=== PATIENT | male | born 1960 | race Caucasian/White ===

== ENCOUNTER 2017-08-01 17:26 | Inpatient (IN) | payer SELFPAY ==
[~2017-08-01] VITALS: Ht 180.3 cm; Wt 116.2 kg
[~2017-08-01 17:26] MED LIST: ARIP1TAB5 PO; DIVA500 PO
[2017-08-01 17:53] VITALS: BP 171/101; PULSE 77; RESP 16; TEMP 98.4; O2SAT 98
[2017-08-01 18:42] VITALS: BP 116/60; PULSE 68; RESP 18; TEMP 98.2; O2SAT 94
[2017-08-01 19:16] LABS: AUTOMATED NEUTROPHIL # 4.4 TH/MM3 (1.8-7.7); BASOPHIL # 0.1 TH/MM3 (0-0.2); BASOPHIL % 0.6 % (0.0-2.0); EOSINOPHIL # 0.3 TH/MM3 (0-0.4); EOSINOPHIL % 3.6 % (0.0-4.0); HEMATOCRIT 46.8 % (39.0-51.0); HEMOGLOBIN 16.9 GM/DL (13.0-17.0); LYMPH % 34.8 % (9.0-44.0); LYMPHOCYTE # 2.8 TH/MM3 (1.0-4.8); MEAN CELL VOLUME 90.9 FL (80.0-100.0); MEAN CORPUSCULAR HEMOGLOBIN 32.9 PG (27.0-34.0); MONO % 6.3 % (0.0-8.0); MONOCYTE # 0.5 TH/MM3 (0-0.9); NEUT % 54.7 % (16.0-70.0); PLATELET COUNT 285 TH/MM3 (150-450); RED BLOOD COUNT 5.15 MIL/MM3 (4.50-5.90); RED CELL DISTRIBUTION WIDTH 12.5 % (11.6-17.2); WHITE BLOOD COUNT 8.1 TH/MM3 (4.0-11.0)
[2017-08-01 19:18] LABS: MEAN CORPUSCULAR HGB CONC 36.1 % (32.0-36.0)
[2017-08-01 19:19] LABS: ALBUMIN 3.7 GM/DL (3.4-5.0); AST (GOT) 25 U/L (15-37); BICARBONATE 27.1 MEQ/L (21.0-32.0); BLOOD UREA NITROGEN 9 MG/DL (7-18); CHLORIDE 102 MEQ/L (98-107); CREATININE 0.84 MG/DL (0.60-1.30); GLOMERULAR FILTRATION RATE 94 ML/MIN (>89); GLUCOSE,RANDOM 123 MG/DL (74-106); SODIUM (NA) 137 MEQ/L (136-145)
[2017-08-01 19:20] LABS: ALT (GPT) 37 U/L (12-78)
[2017-08-01 19:22] LABS: ALKALINE PHOSPHATASE 71 U/L (45-117); TOTAL BILIRUBIN ADULT 0.3 MG/DL (0.2-1.0); TOTAL PROTEIN 7.9 GM/DL (6.4-8.2)
[2017-08-01 22:05] VITALS: BP 137/72; PULSE 88; RESP 20
[2017-08-01 23:24] LABS: BILIRUBIN, URINE NEG (NEG); BLOOD, URINE NEG (NEG); GLUCOSE,URINE NEG (NEG); KETONE, URINE NEG (NEG); MUCUS URINE FEW /lpf (OCC); NITRITE,URINE NEG (NEG); SQUAMOUS EPITHELIAL CELL URINE 1 /hpf (0-5); URINE COLOR YELLOW (YELLW/STRAW); URINE LEUKOCYTE ESTERASE NEG (NEG)
--- NOTE | 2017-08-02 00:42 | PD ---
HPI Chief Complaint: Psychiatric Symptoms Time Seen by Provider: 21:39 Travel History International Travel<30 days: No Contact w/Intl Traveler<30days: No Traveled to known affect area: No History of Present Illness HPI 57-year-old white male presents emergency department on a voluntary basis for psychological evaluation. He lives at home with his mother. He comes in with his mother for evaluation. Patient has had a history of depression and has been off his Depakote for some time. He has been self-medicating with marijuana. He has had thoughts of self-harm but has no current plan. He would like to get back on his medications. He states that he has not been sleeping and would like something for sleep. He denies any toxic ingestions. No recent illness. He denies any alcohol. No homicidal ideation PFSH Past Medical History Arthritis: Yes Atrial Fibrillation: Yes (NO MEDS X 5 YRS) Heart Rhythm Problems: Yes (A FIB) Cancer: Yes (Per patient, previously) Cardiovascular Problems: No (Per patient) Diabetes: No (Per patient, previously 1 year ago was diagnosed but lost 75 lbs. ) Diminished Hearing: Yes (DEF RIGHT EAR) Headaches: No (Per patient) Psychiatric: No (Per patient) Seizures: No (Per patient) Ulcer: Yes (PEPTIC HX OF) Past Surgical History Surgical History: No Previous Surgery Social History Alcohol Use: No Tobacco Use: Yes (2PPD) Substance Use: Yes Allergies-Medications (Allergen,Severity, Reaction): Coded Allergies: grape (Unverified Allergy, Unknown, 08/01/17) Reported Meds & Prescriptions Reported Meds & Active Scripts Active Divalproex Sodium Dr (Divalproex Sodium) 500 Mg Tabec 500 Mg PO BID 30 Days Abilify 10 mg (Aripiprazole) 10 Mg Tab 10 Mg PO BID 30 Days Review of Systems General / Constitutional: No: Fever Eyes: No: Visual changes HENT: No: Headaches Cardiovascular: No: Chest Pain or Discomfort Respiratory: No: Shortness of Breath Gastrointestinal: No: Abdominal Pain Genitourinary: No: Dysuria Musculoskeletal: No: Pain Skin: No Rash Neurologic: No: Weakness Psychiatric: Positive: Depression, Suicidal Ideations, Mood Disorder, Substance Abuse, No: Anxiety, Disorder of Thought, Homicidal Ideation Endocrine: No: Polydipsia Hematologic/Lymphatic: No: Easy Bruising Physical Exam Narrative GENERAL: Well-nourished, well-developed patient. SKIN: Warm and dry. HEAD: Normocephalic and atraumatic. EYES: No scleral icterus. No injection or drainage. ENT: No nasal drainage noted. Mucous membranes pink. Airway patent. NECK: Supple, trachea midline. Moves head freely without obvious discomfort. CARDIOVASCULAR: Regular rate and rhythm without murmurs, gallops, or rubs. RESPIRATORY: Breath sounds equal bilaterally. No accessory muscle use. GASTROINTESTINAL: Abdomen soft, non-tender, nondistended. EXTREMITIES: No cyanosis or edema. BACK: Nontender without obvious deformity. No CVA tenderness. NEURO: Patient is alert and oriented. no sensorimotor deficits. Nonfocal. Normal speech. PSYCH: No delusions. No auditory or visual hallucinations. Data Data Last Documented VS Vital Signs Date Time Temp Pulse Resp B/P (MAP) Pulse Ox O2 Delivery O2 Flow Rate FiO2 08/01/17 22:05 88 20 137/72 (93) 08/01/17 18:42 98.2 94 Room Air Orders Orders Complete Blood Count With Diff (08/01/17 17:56) Comprehensive Metabolic Panel (08/01/17 17:56) Urinalysis - C+S If Indicated (08/01/17 17:56) Psych Screen (08/01/17 17:56) Drug Screen, Random Urine (08/01/17 17:56) Diet Regular Basic (08/01/17 Dinner) Alcohol (Ethanol) (08/01/17 18:22) Valproic Acid (Depakene) (08/01/17 18:22) Diphenhydramine (Benadryl) (08/02/17 00:45) Labs Laboratory Tests Test 08/01/17 18:22 08/01/17 21:50 White Blood Count 8.1 TH/MM3 Red Blood Count 5.15 MIL/MM3 Hemoglobin 16.9 GM/DL Hematocrit 46.8 % Mean Corpuscular Volume 90.9 FL Mean Corpuscular Hemoglobin 32.9 PG Mean Corpuscular Hemoglobin Concent 36.1 % Red Cell Distribution Width 12.5 % Platelet Count 285 TH/MM3 Mean Platelet Volume 8.0 FL Neutrophils (%) (Auto) 54.7 % Lymphocytes (%) (Auto) 34.8 % Monocytes (%) (Auto) 6.3 % Eosinophils (%) (Auto) 3.6 % Basophils (%) (Auto) 0.6 % Neutrophils # (Auto) 4.4 TH/MM3 Lymphocytes # (Auto) 2.8 TH/MM3 Monocytes # (Auto) 0.5 TH/MM3 Eosinophils # (Auto) 0.3 TH/MM3 Basophils # (Auto) 0.1 TH/MM3 CBC Comment DIFF FINAL Differential Comment Blood Urea Nitrogen 9 MG/DL Creatinine 0.84 MG/DL Random Glucose 123 MG/DL Total Protein 7.9 GM/DL Albumin 3.7 GM/DL Calcium Level 9.0 MG/DL Alkaline Phosphatase 71 U/L Aspartate Amino Transf (AST/SGOT) 25 U/L Alanine Aminotransferase (ALT/SGPT) 37 U/L Total Bilirubin 0.3 MG/DL Sodium Level 137 MEQ/L Potassium Level 4.2 MEQ/L Chloride Level 102 MEQ/L Carbon Dioxide Level 27.1 MEQ/L Anion Gap 8 MEQ/L Estimat Glomerular Filtration Rate 94 ML/MIN Valproic Acid (Depakene) Level 6 MCG/ML Ethyl Alcohol Level LESS THAN 3 MG/DL Urine Color YELLOW Urine Turbidity CLEAR Urine pH 7.0 Urine Specific [place] 1.024 Urine Protein TRACE mg/dL Urine Glucose (UA) NEG mg/dL Urine Ketones NEG mg/dL Urine Occult Blood NEG Urine Nitrite NEG Urine Bilirubin NEG Urine Urobilinogen 2.0 MG/DL Urine Leukocyte Esterase NEG Urine RBC 2 /hpf Urine WBC 1 /hpf Urine Squamous Epithelial Cells 1 /hpf Urine Mucus FEW /lpf Microscopic Urinalysis Comment CULT NOT INDICATED Urine Opiates Screen NEG Urine Barbiturates Screen NEG Urine Amphetamines Screen NEG Urine Benzodiazepines Screen NEG Urine Cocaine Screen NEG Urine Cannabinoids Screen POS [facility] Medical Decision Making Medical Screen Exam Complete: Yes Emergency Medical Condition: Yes Medical Record Reviewed: Yes Interpretation(s) Laboratory Tests Test 08/01/17 18:22 08/01/17 21:50 White Blood Count 8.1 TH/MM3 Red Blood Count 5.15 MIL/MM3 Hemoglobin 16.9 GM/DL Hematocrit 46.8 % Mean Corpuscular Volume 90.9 FL Mean Corpuscular Hemoglobin 32.9 PG Mean Corpuscular Hemoglobin Concent 36.1 % Red Cell Distribution Width 12.5 % Platelet Count 285 TH/MM3 Mean Platelet Volume 8.0 FL Neutrophils (%) (Auto) 54.7 % Lymphocytes (%) (Auto) 34.8 % Monocytes (%) (Auto) 6.3 % Eosinophils (%) (Auto) 3.6 % Basophils (%) (Auto) 0.6 % Neutrophils # (Auto) 4.4 TH/MM3 Lymphocytes # (Auto) 2.8 TH/MM3 Monocytes # (Auto) 0.5 TH/MM3 Eosinophils # (Auto) 0.3 TH/MM3 Basophils # (Auto) 0.1 TH/MM3 CBC Comment DIFF FINAL Differential Comment Blood Urea Nitrogen 9 MG/DL Creatinine 0.84 MG/DL Random Glucose 123 MG/DL Total Protein 7.9 GM/DL Albumin 3.7 GM/DL Calcium Level 9.0 MG/DL Alkaline Phosphatase 71 U/L Aspartate Amino Transf (AST/SGOT) 25 U/L Alanine Aminotransferase (ALT/SGPT) 37 U/L Total Bilirubin 0.3 MG/DL Sodium Level 137 MEQ/L Potassium Level 4.2 MEQ/L Chloride Level 102 MEQ/L Carbon Dioxide Level 27.1 MEQ/L Anion Gap 8 MEQ/L Estimat Glomerular Filtration Rate 94 ML/MIN Valproic Acid (Depakene) Level 6 MCG/ML Ethyl Alcohol Level LESS THAN 3 MG/DL Urine Color YELLOW Urine Turbidity CLEAR Urine pH 7.0 Urine Specific [place] 1.024 Urine Protein TRACE mg/dL Urine Glucose (UA) NEG mg/dL Urine Ketones NEG mg/dL Urine Occult Blood NEG Urine Nitrite NEG Urine Bilirubin NEG Urine Urobilinogen 2.0 MG/DL Urine Leukocyte Esterase NEG Urine RBC 2 /hpf Urine WBC 1 /hpf Urine Squamous Epithelial Cells 1 /hpf Urine Mucus FEW /lpf Microscopic Urinalysis Comment CULT NOT INDICATED Urine Opiates Screen NEG Urine Barbiturates Screen NEG Urine Amphetamines Screen NEG Urine Benzodiazepines Screen NEG Urine Cocaine Screen NEG Urine Cannabinoids Screen POS Differential Diagnosis MDM: High Differential diagnoses: Schizophrenia, schizoaffective disorder, bipolar, anxiety, depression, adjustment reaction, mood disorder NOS, ODD, depressive disorder NOS, dementia, dementia with agitation, psychosis NOS, substance induced mood disorder, DMDD, Asperger syndrome, infection,electrolyte abnormality, malingering. Narrative Course Mental health screening discussed with the patient. Psychiatric screen ordered. The patient has been medically cleared. This is medical clearance for psychiatric admission Diagnosis Primary Impression: Medical clearance for psychiatric admission Condition: Stable Owen Archer Aug 02, 2017 00:42
[2017-08-02] MEDS ORDERED: diphenhydrAMINE HCL 50 MG CAP PO ONE (00:45)
[2017-08-02] MEDS ORDERED: ACETAMINOPHEN 325 MG TAB PO PRN (15:30)
[2017-08-02] MEDS ORDERED: diphenhydrAMINE HCL 50 MG CAP PO PRN (15:30)
[2017-08-02] MEDS ORDERED: LORazepam 2 MG/ML VIAL IM PRN (15:30)
[2017-08-02] MEDS ORDERED: LORazepam 1 MG TAB PO PRN (15:30)
[2017-08-02] MEDS ORDERED: ALUMINUM/MAGNESIUM/SIMETH 30 ML CUP PO PRN (15:30)
[2017-08-02] MEDS ORDERED: MAGNESIUM HYDROXIDE SUSP 30 ML CUP PO PRN (15:30)
[2017-08-02 17:50] VITALS: BP 160/82; PULSE 77; RESP 18; TEMP 98.5; O2SAT 98
[2017-08-02 19:41] VITALS: BP 160/82; PULSE 77; RESP 18; TEMP 98.5; O2SAT 98
[2017-08-03 05:50] VITALS: BP 117/79; PULSE 65; RESP 18; TEMP 98.5; O2SAT 98
[2017-08-03 06:43] LABS: BLOOD UREA NITROGEN 12 MG/DL (7-18); CALCIUM 8.9 MG/DL (8.5-10.1); CHLORIDE 104 MEQ/L (98-107); CREATININE 0.73 MG/DL (0.60-1.30); GLOMERULAR FILTRATION RATE 111 ML/MIN (>89); GLUCOSE,RANDOM 100 MG/DL (74-106); SODIUM (NA) 138 MEQ/L (136-145)
[2017-08-03 06:44] LABS: CHOLESTEROL 197 MG/DL (120-200); TRIGLYCERIDES 244 MG/DL (42-150)
[2017-08-03 06:53] LABS: CHOLESTEROL/ HDL RATIO 6.79 RATIO; LDL CHOLESTEROL 119 MG/DL (0-99)
--- NOTE | 2017-08-03 12:12 | HHI.HP ---
Provisional Diagnosis Admission Date Aug 02, 2017 at 15:21 [place] I. 1. Bipolar disorder, presently manic, mild 2. Cannabis use, rule out use disorder [place] II. Deferred Certification of Person's Competence To Provide Express and Informed Consent I have personally examined Bishop Solomon , a person being served at [facility] on, Aug 03, 2017 12:12. Express and informed consent means consent voluntarily given in writing, by a competent person, after sufficient explanation and disclosure of the subject matter involved to enable the person to make a knowing and willful decision without any element of force, fraud, deceit, duress, or other form of constraint or coercion. This person is 18 years of age or older, is not now known to be incompetent to consent to treatment with a guardian advocate, and does not have a health care surrogate or proxy currently making medical treatment decisions. I have found this person to be one of the following: [x] Competent to provide express and informed consent, as defined above, for voluntary admission to this facility and is competent to provide express and informed consent for treatment. He/she has the consistent capacity to make well reasoned, willful, and knowing decisions concerning his or her medical or mental health treatment. The person fully and consistently understands the purpose of the admission for examination/placement and is fully capable of personally exercising all rights [place] Incompetent to provide express and informed consent to voluntary admission, and this is incompetent to provide express and informed consent to treatment. The person must be transferred to involuntary status and a petition for a guardian advocate filed with the Circuit Court. [] Refusing to provide express and informed consent to voluntary admission but is competent to provide express and informed consent for treatment. The person must be discharged or transferred to involuntary status. Form shall be completed within 24 hours of a person's arrival at the receiving facility and filed in the clinical record of each person: 1. Admitted on a voluntary basis 2. Permitted to provide express and informed consent to his/her own treatment 3. Allowed to transfer from involuntary to voluntary status 4. Prior to permitting a person to consent to his or her own treatment after having been previously found incompetent to consent to treatment. History of Present Illness Capacity: Has Capacity Psych Chief Complaint: "Lack of sleep made me lose my freakin' mind." HPI Mr. Solomon is a 57-year-old male with a chart history of schizoaffective disorder who presented to the emergency department voluntarily for psychiatric evaluation. Reviewing the electronic medical record, I note that the patient was admitted under Dr. Knox in 2014. Patient seen and examined with nurse. Chart reviewed. Case discussed with nursing staff. On my examination today, the patient presents with rapid but interruptible speech. He speaks in a somewhat rambling fashion and his thought process reveals some loosening of associations. He says that his sleep has been poor for what seems like "1-2 years." He says that he has been experiencing vague auditory hallucinations "for a while" although it is not clear in context if these represent kassandra radha auditory hallucinations or some sort of inner dialogue. No other hallucinatory material reported. No delusional material. The patient exhibits some impulsiveness and disinhibition. For example, the patient reports a grape allergy but nonetheless got a hold of some grape juice and tried to drink it to see what would happen. He says that he didn't , and so his allergy must not be as severe as he thought. He denies any suicidal or homicidal ideation presently. No depressive symptoms. Remainder of the psychiatric ROS is negative. No acute physical complaints. Past psychiatric history: The patient has a previous diagnosis of schizoaffective disorder. He is not currently under the care of an outpatient psychiatrist and is not presently taking psychotropic medications. His most recent psychiatric admission was here at [facility]. He denies a history of suicide attempts. He denies a history of violent behavior. Family history: The patient does report some family history of mental illness, although the diagnoses and members affected is unclear. The patient denies a family history of suicide. Chemical dependency history: The patient reports that he has been smoking cannabis in an effort to help his sleep. He denies any other substance use. Social history: The patient lives alone. He is and has a son as well as 2 stepchildren. 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 He denies any history. Denies any access to guns or firearms. He is a Jainism. No reported access to guns or firearms. Review of Systems ROS Limitations: Poor Historian Except as stated in HPI: all other systems reviewed are Neg Past Family Social History Coded Allergies: grape (Unverified Allergy, Unknown, 08/01/17) Past Medical History patient denies any past medical history Discontinued Scripts Divalproex Sodium (Divalproex Sodium Dr) 500 Mg Tabec, 500 MG PO BID for mood swings and temper outburs for 30 Days, TAB 0 Refills Prov:Tiago Knox MD 10/20/14 Aripiprazole (Abilify 10 mg) 10 Mg Tab, 10 MG PO BID for mood swings and psychotic symp for 30 Days, TAB 0 Refills Prov:Tiago Knox MD 10/20/14 Current Medications Medications (Trade) Dose Ordered Sig/Kathie Route Start Time Stop Time Status Last Admin (Ativan) 1 mg Q6H PRN PO 08/02/17 15:30 (Ativan Inj) 1 mg Q6H PRN IM 08/02/17 15:30 (Benadryl) 50 mg HS PRN PO 08/02/17 15:30 (Tylenol) 650 mg Q4H PRN PO 08/02/17 15:30 08/03/17 09:19 (Milk Of Magnesia Liq) 30 ml DAILY PRN PO 08/02/17 15:30 (Mag-Al Plus Susp Liq) 30 ml Q6H PRN PO 08/02/17 15:30 Patient's Strengths (min. 2) In a monitored setting. Verbally fluent. Physical Exam Physical exam completed by ED provider. On my examination today, the patient appears to be in no acute physical distress. No motor abnormalities noted. Labs and vitals reviewed: Vital Signs Vital Signs Date Time Temp Pulse Resp B/P (MAP) Pulse Ox O2 Delivery O2 Flow Rate FiO2 08/03/17 05:50 98.5 65 18 117/79 (92) 98 08/01/17 18:42 Room Air Lab Results Test 08/03/17 00:54 Blood Urea Nitrogen 12 MG/DL Creatinine 0.73 MG/DL Random Glucose 100 MG/DL Calcium Level 8.9 MG/DL Sodium Level 138 MEQ/L Potassium Level 4.2 MEQ/L Chloride Level 104 MEQ/L Carbon Dioxide Level 26.0 MEQ/L Anion Gap 8 MEQ/L Estimat Glomerular Filtration Rate 111 ML/MIN Triglycerides Level 244 MG/DL Cholesterol Level 197 MG/DL LDL Cholesterol 119 MG/DL HDL Cholesterol 29.0 MG/DL Cholesterol/HDL Ratio 6.79 RATIO Thyroid Stimulating Hormone 3rd Gen 4.320 uIU/ML TSH mildly elevated. Toxicology positive for cannabinoids. Urinalysis bland. Mental Status Examination Appearance: Disheveled (mild) Consciousness: Alert Orientation: x4 Motor Activity: Other (no motor abnormalities noted) Speech: Rapid Language: Other (somewhat rambling) Fund of Knowledge: Adequate Attention and Concentration: Easily Distracted Memory: Unremarkable Mood: Other (slightly elevated) Affect: Other (mildly expansive) Thought Process & Associations: Loose associations (mild) Thought Content: Appropriate Hallucination Type: None Delusion Type: None Suicidal Ideation: No Suicidal Plan: No Suicidal Intention: No Homicidal Ideation: No Homicidal Plan: No Homicidal Intention: No Insight: Fair Judgment: Impulsive Assessment & Plan Problem List: (1) Bipolar affective disorder, currently manic, mild ICD Codes: F31.11 - Bipolar disorder, current episode manic without psychotic features, mild Assessment & Plan 57-year-old male with psychiatric history as detailed above who presents voluntarily for psychiatric evaluation. On my examination today, the patient appears to be mildly manic. Although the patient has a history of schizoaffective disorder, his reported fairly good interepisodic level of function makes me more suspicious of a bipolar disorder, presently manic mild. The patient does have minor TSH abnormalities that will need to be followed up to rule out an organic cause such as thyroid derangement. Given that the patient's main complaint is difficulty with sleep, I think it makes sense to initiate a sedating antipsychotic for management of the patient's ph[place]. Patient requires psychiatric hospitalization at this time for medication management and stabilization. Admit inpatient. Voluntary status. Follow-up EKG. Check free T4. Initiate Zyprexa 15mg qHS for mood stabilization and sleep with plans to titrate to effect. Cogentin as needed for EPS. Vitals every shift. Counselor to see. Disposition planning. Estimated length of stay: 3-5 days. Discharge Planning Pending psychiatric stabilization Request HC Surrog/Guard Advoc?: No Jayant Ravi MD Aug 03, 2017 12:12
[2017-08-03] MEDS ORDERED: BENZTROPINE MESYLATE 2 MG/2 ML VIAL IM PRN (14:00)
[2017-08-03] MEDS ORDERED: BENZTROPINE MESYLATE 1 MG TAB PO PRN (14:00)
[2017-08-03 18:16] VITALS: BP 165/88; PULSE 82; RESP 18; TEMP 98.1; O2SAT 97
[2017-08-04 05:04] VITALS: BP 110/64; PULSE 60; RESP 16; TEMP 98; O2SAT 98
[2017-08-04 05:41] VITALS: BP 110/64; PULSE 60; RESP 16; TEMP 98; O2SAT 98
--- NOTE | 2017-08-04 09:25 | PD.TTN ---
Patient Problems 1. Discharge planning 2. Medication compliance 3. Knowledge deficit 4. Lack of coping skills Progress Toward Goals Provider Present: Dr. Arturo Ravi Provider Input: 08/04/17 - Dr. Ravi reported that he initiated Zyprexa last evening and the patient slept for six hours. Psychiatric Counselors Present: ANDRIY Guzman Psych Therapist Input: 08/04/17 - Patient's main concerfn was lack of sleep. His goal for this admission is to be put on medication which will allow him to sleep through the night. Group Spec/RT/OT/FISHMAN Present: KYE Burt Group Spec/RT/OT/FISHMAN Input: 08/04/17 - No group participation as of yet. Discharge Plan SMA 08/04/17 - Patient will return home following discharge. Documentation Scribe: ANDRIY Guzman Lindsay [facility] Aug 04, 2017 09:25
[2017-08-04] MEDS ORDERED: OLAN15TA PO (11:36)
--- NOTE | 2017-08-04 11:36 | HHI.DS ---
Psychiatry Discharge Summary Inpatient Psychiatric care?: Yes Advance Directive: No Reason Not Provided: does not have Mental Health AdvanceDirective: No Health Care Proxy: No Admission Admission Date Aug 02, 2017 at 15:21 Admission Diagnosis: (1) Bipolar affective disorder, currently manic, mild ICD Code: F31.11 - Bipolar disorder, current episode manic without psychotic features, mild Brief History Mr. Solomon is a 57-year-old male with a chart history of schizoaffective disorder who presented to the emergency department voluntarily for psychiatric evaluation. Reviewing the electronic medical record, I note that the patient was admitted under Dr. Knox in 2014. Patient seen and examined with nurse. Chart reviewed. Case discussed with nursing staff. On my examination today, the patient presents with rapid but interruptible speech. He speaks in a somewhat rambling fashion and his thought process reveals some loosening of associations. He says that his sleep has been poor for what seems like "1-2 years." He says that he has been experiencing vague auditory hallucinations "for a while" although it is not clear in context if these represent kassandra radha auditory hallucinations or some sort of inner dialogue. No other hallucinatory material reported. No delusional material. The patient exhibits some impulsiveness and disinhibition. For example, the patient reports a grape allergy but nonetheless got a hold of some grape juice and tried to drink it to see what would happen. He says that he didn't , and so his allergy must not be as severe as he thought. He denies any suicidal or homicidal ideation presently. No depressive symptoms. Remainder of the psychiatric ROS is negative. No acute physical complaints. Past psychiatric history: The patient has a previous diagnosis of schizoaffective disorder. He is not currently under the care of an outpatient psychiatrist and is not presently taking psychotropic medications. His most recent psychiatric admission was here at [facility]. He denies a history of suicide attempts. He denies a history of violent behavior. Family history: The patient does report some family history of mental illness, although the diagnoses and members affected is unclear. The patient denies a family history of suicide. Chemical dependency history: The patient reports that he has been smoking cannabis in an effort to help his sleep. He denies any other substance use. Social history: The patient lives alone. He is and has a son as well as 2 stepchildren. 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 He denies any history. Denies any access to guns or firearms. He is a [employer]. No reported access to guns or firearms. Tobacco Use In Past 30 Days: 5 or More Cigarettes/Day Alcohol Use: Never Hospital Course Patient was admitted to a locked, inpatient psychiatric unit. Appropriate precautions were in place throughout patient's hospital stay. Patient was seen and examined on the unit by psychiatry and also visited by counselor. Psychotropic medications were adjusted. Patient tolerated medications well without side effects. There was no evidence of any suicidality or homicidality on the inpatient unit. There was no evidence of significant self-care deficit. The patient remained in behavioral control and was compliant with medications. On the day of discharge: Patient seen and examined with nurse. Chart reviewed. Case discussed with nursing staff. No behavioral issues noted overnight. The patient slept well overnight. Case discussed in treatment team. On my examination today, the patient is very pleased to have slept well overnight. He feels that he has met his goals for this hospitalization and is requesting discharge from the inpatient psychiatric unit today. He denies any suicidal or homicidal ideation, intent or plan on direct questioning and contracts for safety. Mood is very slightly elevated but there are no signs or symptoms of severe philly, nor can I elicit any depressive symptoms. He denies any audiovisual hallucinations. I can elicit no delusional beliefs. There is no evidence of any impairment in reality construction. He denies side effects from medications. He has no physical complaints. With the patient's permission I have obtained collateral information from the patient's mother, Lori (Konidine) at [phone]. Lori has no concerns about the patient being a risk of harm to himself or others. She is comfortable with having him return home today. I have counseled her to secure the patient's home environment of potential means of harm to self/others including but not limited to guns, knives and medications out of an abundance of caution. I have educated her regarding mechanisms to have the patient brought back to the emergency room for psychiatric evaluation should the need arise including voluntary psychiatric evaluation, Malone act and ex parte. Suicide and violence risk assessment on day of discharge both suggest lower imminent risk from a mental illness as defined under the Malone act and the patient's level of function is adequate for outpatient care. The patient does not presently meet criteria for involuntary psychiatric hospitalization. I have strongly recommended that he remain on the inpatient unit for further observation and highlighted the not insignificant personal and professional complications that can result from even mild philly, but he has declined. I have no basis to retain him over his objection at this point. I will discharge the patient home today with psychiatric follow-up as arranged by counselor. Patient is also to follow-up with primary care. Patient to return to psychiatric emergency room for any concerning psychiatric symptoms as part of the general safety plan. Results Blood Pressure / Vital Signs Date Time Temp Pulse Resp B/P (MAP) Pulse Ox O2 Delivery O2 Flow Rate FiO2 08/04/17 05:04 98.0 60 16 110/64 (79) 98 08/01/17 18:42 Room Air Laboratory Tests Test 08/01/17 18:22 08/01/17 21:50 08/03/17 00:54 Mean Corpuscular Hemoglobin Concent 36.1 % (32.0-36.0) Random Glucose 123 MG/DL (74-106) Valproic Acid (Depakene) Level 6 MCG/ML (50-100) Urine Mucus FEW /lpf (OCC) Urine Cannabinoids Screen POS (NEG) Triglycerides Level 244 MG/DL (42-150) LDL Cholesterol 119 MG/DL (0-99) HDL Cholesterol 29.0 MG/DL (40.0-60.0) Thyroid Stimulating Hormone 3rd Gen 4.320 uIU/ML (0.358-3.740) Laboratory Results Test 08/01/17 18:22 08/03/17 00:54 Valproic Acid (Depakene) Level 6 MCG/ML (50-100) Cholesterol Level 197 MG/DL (120-200) HDL Cholesterol 29.0 MG/DL (40.0-60.0) LDL Cholesterol 119 MG/DL (0-99) Triglycerides Level 244 MG/DL (42-150) Summary of Procedures None done Imaging None done Pending results at discharge: Yes (HgbA1c) Medications # of Antipsychotic meds at D/C: 1 Approp Antipsych med options 1 - Minimum of three failed multiple trials of monotherapy. 2 - Documented plan to taper to monotherapy due to previous use of multiple meds OR cross-taper in progress at D/C. 3 - Documentation of augmentation of Clozapine. 4 - Justification other than those listed in allowable values 1-3, document here : Discharge Discharge Date: Aug 04, 2017 Discharge Diagnosis: (1) Bipolar affective disorder, currently manic, mild Diagnosis: Principal ICD Code: F31.11 - Bipolar disorder, current episode manic without psychotic features, mild Pt Condition on Discharge: Fair Discharge Disposition: Discharge Home Discharge Instructions Diet Instructions: As Tolerated, No Restrictions Activities you can perform: Weight Bearing as Srini Scheduled Appointment: as per counselor's notes New Medications: Olanzapine (Olanzapine) 15 Mg Tab 15 MG PO HS for Mental Health for 15 Days, TAB 1 Refill Discharge Time > 30 minutes Mental Status Examination Appearance: Appropriate Consciousness: Alert Orientation: x4 Motor Activity: Normal gait, Other (no hand tremor, no cogwheeling, no hypomimia, no dystonia, no dyskinesia, no other motor abnormalities noted.) Speech: Unremarkable Language: Adequate Fund of Knowledge: Adequate Attention and Concentration: Other (attention and concentration are improved today) Memory: Unremarkable Mood: Other (mildly elevated) Affect: Other (mildly expansive) Thought Process & Associations: Intact Thought Content: Appropriate Hallucination Type: None Delusion Type: None Suicidal Ideation: No Suicidal Plan: No Suicidal Intention: No Homicidal Ideation: No Homicidal Plan: No Homicidal Intention: No Mental Status Exam Remarks Insight and judgment are fair at best Discharge/Advance Care Plan Health Problems: (1) Bipolar affective disorder, currently manic, mild Goals to promote your health * To prevent worsening of your condition and complications * To maintain your health at the optimal level Directions to meet your goals Take your medications as prescribed Follow your dietary instruction Follow activity as directed Keep your appointments as scheduled Take your immunizations and boosters as scheduled If your symptoms worsen call your PCP, if no PCP go to Urgent Care Center or Emergency Room For 01/12 questions related to your inpatient stay or results of tests pending at discharge, please contact Dr. Jayant Ravi at Smoking is Dangerous to Your Health. Avoid second hand smoking Jayant Ravi MD Aug 04, 2017 11:36
--- NOTE | 2017-08-04 15:45 | EKG ---
Date Performed: 08/03/2017 Time Performed: 13:36:06 PTAGE: 57 years EKG: Sinus rhythm WITH MARKED SINUS ARRHYTHMIA INFERIOR MYOCARDIAL INFARCTION , PROBABLY OLD ABNORMAL ECG Since the PREVIOUS TRACING , no significant change noted PREVIOUS TRACIN10/12/2014 19.54 DOCTOR: Ko Robins Interpretating Date/Time 08/04/2017 15:41:36
[2017-08-05 18:30] LABS: HEMOGLOBIN A1C 6.1 % (4.3-6.0)
== END 2017-08-04 13:05 | disposition home or self-care (01) | DRG 885 ==
LOC: NEPJ 17:26 → NEDA 08-02 15:21 → H260 08-02 16:55
PROVIDERS: ADMIT Psychiatry & Neurology Psychiatry; ATTEND Psychiatry & Neurology Psychiatry
DX: F31.11 Bipolar disorder, current episode manic without psychotic features, mild (principal); F25.9 Schizoaffective disorder, unspecified; F12.90 Cannabis use, unspecified, uncomplicated; H91.91 Unspecified hearing loss, right ear; Z72.0 Tobacco use; Z81.8 Family history of other mental and behavioral disorders
CPT/HCPCS: 80048; 80053; 80061; 80164; 80307; 81001; 83036; 84439; 84443; 85025; 93005; Q0163

== ENCOUNTER 2017-10-01 00:04 | Emergency (ER) | payer SELFPAY ==
[~2017-10-01] VITALS: Ht 180.3 cm; Wt 122.0 kg
[~2017-10-01 00:04] MED LIST changes: -ARIP1TAB5 PO; -DIVA500 PO; +OLAN15TA PO
[2017-10-01 00:07] VITALS: BP 154/79; PULSE 83; RESP 18; TEMP 99.1; O2SAT 98
[2017-10-01] MEDS ORDERED: ALUMINUM/MAGNESIUM/SIMETH 30 ML CUP PO ONE (01:15)
[2017-10-01] MEDS ORDERED: LIDOCAINE VISCOUS 2% SOLN 15 ML UDC SWISH-SWAL ONE (01:15)
--- NOTE | 2017-10-01 02:39 | PD ---
HPI . back pain abdominal pain Chief Complaint: Abdominal Pain Time Seen by Provider: 00:56 Travel History International Travel<30 days: No Contact w/Intl Traveler<30days: No Traveled to known affect area: No History of Present Illness HPI Patient is 57-year-old male who is coming in complaining of a few days of periumbilical pain and left upper quadrant pain and mid back pain and bilateral leg pain. He denies trauma he denies nausea he is vague aches and pains he is given a GI cocktail without any relief he said all that it was made like his tongue was numb and he could not breathe but he did not touch his pain he reports he said he took some naproxen without relief and then a friend of his gave him some medical marijuana which he said did not help at all either. Now he is complaining of the periumbilical to left upper quadrant tenderness as well as leg pain and mid back pain PFSH Past Medical History Arthritis: Yes Asthma: No Atrial Fibrillation: Yes (NO MEDS X 5 YRS) Autoimmune Disease: No Anxiety: No Depression: No Heart Rhythm Problems: Yes (A FIB) Cancer: Yes (history, per patient) Cardiovascular Problems: No High Cholesterol: No Chemotherapy: No Chest Pain: No Congestive Heart Failure: No COPD: No Cerebrovascular Accident: No Diabetes: Yes (one year ago but patient lost weight and the diabetes resolved) Patient Takes Glucophage: No Diminished Hearing: Yes (DEF RIGHT EAR) Endocrine: No GERD: No Genitourinary: No Headaches: No Hiatal Hernia: No Immune Disorder: No Kidney Stones: No Musculoskeletal: No Neurologic: No Psychiatric: Yes (Bipoplar Disorder, treated at [facility] in 2014.) Reproductive: No Respiratory: No Migraines: No Renal Failure: No Seizures: No Sickle Cell Disease: No Sleep Apnea: No Thyroid Disease: No Ulcer: Yes (PEPTIC HX OF) Tetanus Vaccination: Unknown Influenza Vaccination: No Past Surgical History Abdominal Surgery: No AICD: No Arteriovenous Shunt: No Cardiac Surgery: No Ear Surgery: No Endocrine Surgery: No Eye Surgery: No Genitourinary Surgery: No Gynecologic Surgery: No Insulin Pump: No Joint Replacement: No Oral Surgery: No Pacemaker: No Thoracic Surgery: No Tonsillectomy: Yes (t&a) Social History Alcohol Use: No Tobacco Use: Yes (2PPD) Substance Use: No (DENIES) Allergies-Medications (Allergen,Severity, Reaction): Coded Allergies: grape (Unverified Allergy, Unknown, 10/01/17) Reported Meds & Prescriptions Reported Meds & Active Scripts Active Flexeril (Cyclobenzaprine HCl) 10 Mg Tab 10 Mg PO HS Ibuprofen 600 Mg Tab 600 Mg PO Q6H PRN Review of Systems Except as stated in HPI: all other systems reviewed are Neg Physical Exam Narrative GENERAL: awake alert non toxic appearing SKIN: Warm and dry. HEAD: Atraumatic. Normocephalic. EYES: Pupils equal and round. No scleral icterus. No injection or drainage. ENT: No nasal bleeding or discharge. Mucous membranes pink and moist. NECK: Trachea midline. No JVD. CARDIOVASCULAR: Regular rate and rhythm. RESPIRATORY: No accessory muscle use. Clear to auscultation. Breath sounds equal bilaterally. GASTROINTESTINAL: Abdomen soft, non-tender, nondistended. Hepatic and splenic margins not palpable. MUSCULOSKELETAL: Extremities without clubbing, cyanosis, or edema. No obvious deformities. BACK reports mid back tenderness NEUROLOGICAL: Awake and alert. No obvious cranial nerve deficits. Motor grossly within normal limits. Five out of 5 muscle strength in the arms and legs. Normal speech. PSYCHIATRIC: Appropriate mood and affect; insight and judgment normal. Data Data Last Documented VS Vital Signs Date Time Temp Pulse Resp B/P (MAP) Pulse Ox O2 Delivery O2 Flow Rate FiO2 10/01/17 00:07 99.1 83 18 154/79 (104) 98 Orders Orders Al-Mag Hy-Si 40-40-4 Mg/Ml Liq (Mag-Al P (10/01/17 01:15) Lidocaine 2% Viscous (Xylocaine 2% Visco (10/01/17 01:15) Tramadol (Ultram) (10/01/17 02:45) Diazepam (Valium) (10/01/17 02:45) Ketorolac Inj (Toradol Inj) (10/01/17 02:45) Ed Discharge Order (10/01/17 04:11) [facility] Medical Decision Making Medical Screen Exam Complete: Yes Emergency Medical Condition: Yes Differential Diagnosis Musculoskeletal pain versus abdomen gastritis versus cholecystitis versus pancreatitis Narrative Course Patient is given GI cocktail he says it does not help at all patient is given Toradol IM and muscle relaxant Valium and tramadol to see if that helps his pain Diagnosis Primary Impression: Back pain Additional Impression: Abdominal pain Patient Instructions: Back Pain (ED), General Instructions Scripts Cyclobenzaprine (Flexeril) 10 Mg Tab 10 MG PO HS for Muscle Spasm, #6 TAB 0 Refills Prov: Zaki Renee MD 10/01/17 Ibuprofen (Ibuprofen) 600 Mg Tab 600 MG PO Q6H Y for Pain/Inflammation, #20 TAB 0 Refills Prov: Zaki Renee MD 10/01/17 Zaki Renee MD October 01, 2017 02:39
[2017-10-01] MEDS ORDERED: KETOROLAC TROMETHAMINE 60 MG/2 ML (IM) VIAL IM ONE (02:45)
[2017-10-01] MEDS ORDERED: traMADol HCL 50 MG TAB PO ONE (02:45)
[2017-10-01] MEDS ORDERED: DIAZEPAM 5 MG TAB PO ONE (02:45)
[2017-10-01] MEDS ORDERED: IBUP-232 PO (04:13)
[2017-10-01] MEDS ORDERED: CYCL10TA PO (04:13)
== END 2017-10-01 04:18 | disposition home or self-care (01) ==
LOC: NEPE 00:04
DX: R10.12 Left upper quadrant pain (principal); M54.9 Dorsalgia, unspecified; I48.91 Unspecified atrial fibrillation; F17.210 Nicotine dependence, cigarettes, uncomplicated
CPT/HCPCS: 96372; 99283; J1885